=== PATIENT | female | born 1975 | race Caucasian/White ===

== ENCOUNTER 2022-10-07 08:15 | Outpatient (CLI) | payer OTHER, SELFPAY | END 2022-10-07 08:16 | disposition home or self-care (01) | PROVIDERS: PCP Family Medicine; Referring Provider Family Medicine; Visit Provider Family Medicine | DX: Z13.6 Encounter for screening for cardiovascular disorders (principal); Z13.9 Encounter for screening, unspecified | CPT/HCPCS: 80053; 80061 ==

== ENCOUNTER 2022-10-16 13:35 | Outpatient (CLI) | payer OTHER, SELFPAY ==
[2022-10-16 17:18] LABS: Chlamydia DNA Amplified* NOT DETECTED (No Detected); GC DNA Amplified* NOT DETECTED (No Detected)
== END 2022-10-16 13:36 | disposition home or self-care (01) ==
LOC: NFLDREF 13:36
PROVIDERS: PCP Family Medicine; Visit Provider Family Medicine
DX: N93.9 Abnormal uterine and vaginal bleeding, unspecified (principal)
CPT/HCPCS: 87491; 87591

== ENCOUNTER 2022-10-24 09:10 | Outpatient (CLI) | payer OTHER, SELFPAY ==
--- NOTE | 2022-10-24 09:15 | CRLHL7_ITS ---
For Patients: As a result of the Century Cures Act, medical imaging exams and procedure reports are released immediately into your electronic medical record. You may view this report before your referring provider. If you have questions, please contact your health care provider. INDICATION: 47 year-old female. Menstrual spotting not otherwise specified. TECHNIQUE: Transabdominal and transvaginal pelvic ultrasound. COMPARISON: None. FINDINGS: The uterus is mildly enlarged measuring 11.4 x 5.4 x 6.9 cm. The endometrial stripe measures 4 mm transvaginally. Small cervical nabothian cysts. There are 3 discrete myometrial masses. There is a submucosal lesion along the superior left margin of the uterine body measuring 1.9 x 2.0 x 1.8 cm clearly impinging upon and displacing the endometrial stripe. There is a 2nd intramural fibroid measuring 1.4 x 1.4 x 1.4 just adjacent to the 1st fibroid. There is a 3rd small submucosal fibroid measuring 0.9 x 0.9 x 1.0 cm along the posterior mid right uterine body impinging upon the endometrial stripe. The ovaries are normal in size without mass or torsion. The right ovary measures 3.0 x 1.7 x 2.1 cm. The left ovary measures 3.8 x 1.7 x 1.8 cm. No free pelvic fluid. IMPRESSION: Three myometrial masses 2 which impinge upon the endometrial stripe. No endometrial stripe thickening. Dictated by Leonel Chanel MD @ 10/24/2022 9:51:34 AM (Electronically Signed)
== END 2022-10-24 09:11 | disposition home or self-care (01) ==
LOC: US 09:11
PROVIDERS: PCP Family Medicine; Visit Provider Family Medicine
DX: N92.3 Ovulation bleeding (principal); R19.05 Periumbilic swelling, mass or lump
CPT/HCPCS: 76830; 76856

== ENCOUNTER 2023-02-26 07:35 | Day surgery (SDC) | payer OTHER, SELFPAY ==
[2023-02-26] VITALS (7 sets, daily range): BP systolic 81–103; BP diastolic 48–76; PULSE 55–89; RESP 14–16; TEMP 36.1–36.6; O2SAT 95–100; BMI 25.2
[2023-02-26] MEDS: LACTATED RINGERS 1000 ML 1,000 ML 100 ML IV (07:40)
[2023-02-26 08:06] LABS: Ur HCG Qualitative* Negative (Negative)
[2023-02-26 08:13] LABS: Hemoglobin* 13.6 gm/dL (12.0-16.0)
[2023-02-26] MEDS: SODIUM CHLORIDE 0.9 % (FLUSH) 10 ML SYRINGE IVF (08:16)
--- NOTE | 2023-02-26 09:38 | W.ANESCHARGE ---
Anesthesia Charges Start Date/Time Anesthesia Start Date: 02/26/23 Anesthesia Start Time: 09:10 Stop Date/Time Anesthesia Stop Date: 02/26/23 Anesthesia Stop Time: 10:19
--- NOTE | 2023-02-26 09:43 | W.ANESCHARGE ---
Anesthesia Charges Start Date/Time Anesthesia Start Date: 02/26/23 Anesthesia Start Time: 09:10 Stop Date/Time Anesthesia Stop Date: 02/26/23 Anesthesia Stop Time: 10:19
[2023-02-26] MEDS: SILVER NITRATE APPLICATOR 1 EACH STICK..EA. TOPICAL (10:10)
--- NOTE | 2023-02-26 10:27 | P.GYNPRC_ITS ---
Procedure Note Time Seen by Provider: 10:27 Date of procedure: 02/26/23 Procedure Description: Preoperative diagnosis: Jen is a 47 year-old with abnormal uterine bleeding due to suspected intramural leiomyoma that is distorting her uterine cavity. She is currently menstruating. Postoperative diagnosis: Same Procedure: Hysteroscopy, Dilation and Curettage using the Truclear incisor Anesthesia: Conscious sedation, paracervical block. Surgeon: Aditi Goode MD Refinery Operator Gas Plant: None Estimated blood loss: <5 mL UOP: 155 cc Specimen: Endometrial curettings to pathology. Findings: Exam under anesthesia: Cervix: anterior midline nabothian cyst. Uterus: anteverted position, 6 week sized, mobile, with no masses or nodularity palpable. Uterus sounded to 10 cm. No adnexal masses or nodularity palpable. On hysteroscopy: One large anterior left intramural fibroid noted. Endometrium indicative of current menstruation. Normal bilateral tubal ostea. Procedure: Jen was taken to the operating operating room more conscious sedation was found to be adequate. Bladder emptied with straight cath. The patient was placed on in the dorsal lithotomy position and an exam under anesthesia was performed with findings stated above. She was then prepped and draped in a normal sterile manner. A bivalve speculum was placed in the vagina. The cervix appears multiparous. Otherwise no abnormalities. The paracervical block was placed using 1% lidocaine with epi, 5 mL was injected at the 4 and 8 o'clock positions on the cervix. The anterior lip of the cervix was grasped with tenaculum. The cervix dilated to Hegar 6 with minimal resistance as her cervix is slightly dilated with menstruation. The uterus sounded to 10 cm. The Truclear hysteroscope was advanced into the uterus. A diagnostic hysteroscopy was performed with normal saline as the insufflation medium. Findings are stated above. The Truclear incisor (soft tissue)was then advanced through the camera. The curettage was performed with the incisor and I was able to obtain endometrial sampling but soft tissue incisor was minimally effective during myomectomy. The incisor was then removed and the dense tissue shaver was used for the rest of the procedure. The endometrial cavity, overall, appeared normal. Saline deficit at the end of the procedure 620 mL. Silver nitrate sticks were used for hemostasis at tenaculum site after removal. The hysteroscope and speculum were removed from the vaginal canal. The patient tolerated the procedure well. Sponge, lap and instrument counts were correct x2 at the end of the procedure. The patient was taken to the recovery area in stable condition.
== END 2023-02-26 11:45 | disposition home or self-care (01) ==
PROVIDERS: PCP Family Medicine; Visit Provider Obstetrics & Gynecology
PROC: 0UDB8ZZ Extraction of Endometrium, Via Natural or Artificial Opening Endoscopic (ICD-10-PCS; CPT 58558; principal; 2023-02-26 08:45)
DX: N93.8 Other specified abnormal uterine and vaginal bleeding (principal); D25.1 Intramural leiomyoma of uterus
CPT/HCPCS: 58558; 00952; 36415; 81025; 85018; 88305; A9270; J1885; J2250; J2405; J2704; J7120

== ENCOUNTER 2023-11-12 08:10 | Outpatient (CLI) | payer OTHER, SELFPAY ==
--- OUTSIDE RECORDS SUMMARY | 2023-11-28 03:07 | XMS_ITS | Continuity of Care Document ---
Author Organization [facility] Address [address] [place] [address] Phone Care Team Providers Care Photographic Reproduction Technician Name Role Phone Abiodun Yang Unavailable Unavailable Allergies, Adverse Reactions, Alerts Substance Reaction Status Criticality No Known Allergies Active No Inform ation Medications Medication Instructions Dosage Effective Dates (start - stop) Status Comments KETOROLAC TROMETHAMINE (unknown strength) Not Available - Active CYCLOBENZAPRINE HCL (unknown strength) Not Available - Active GABAPENTIN (unknown strength) Not Available - Active METHYLPREDNISOLONE (unknown strength) Not Available - Active ZOLOFT (unknown strength) Not Available - Active Procedures Procedure Date Office/Outpatient Visit,Candelario Conway 2020 Advance Directives Directive Yes / No Effective Date File Name No Information Encounters Encounter Description Practice Location Reason(s) For Visit Diagnoses Date Provider Providers Copied on Encounter [facility], [address], [place], [place], [id number], [place] tel:[phone] [facility] No Information 1 Iggy Rascon. [facility], [address] [place] [address], [address], [place], [place], [id number] , [place]. tel:[phone] Office/Outpat ient Visit,[facility], [facility], [address], [place], [place], [id number], [place] tel:[phone] [facility] - [facility] Low back pain 1 Panvica Abiodun. [facility], [address], [address], [place], [place], [address] , [place]. tel:[phone] Referring Provider: Richi Welsh, [facility] [address] [place], [address]. tel:[phone] Family History Family Member Type Diagnosis Age At Onset No Information Payers Payer name Insurance type Covered constitution party ID Mary rose(s[facility] [id number] Social History Type Description Quantity Date Captured Comments Sex Female Smoking Status No Information Chief Complaint And Reason For Visit No Information Reason For Referral Reason For Referral No Information History Of Present Illness Encounter Date Complaint History Of Prese nt Illness No Information Functional Status Date Functional Assessmen t No Information Instructions Date Instruction Additional Infor mation No Information Assessments Type Assessment Date No Information Patient Care Teams Name Effective Dates (start - stop) Status Members No Information
== END 2023-11-12 08:11 | disposition home or self-care (01) ==
LOC: NFLDREF 11-28 03:04
PROVIDERS: PCP Family Medicine; Referring Provider Family Medicine; Visit Provider Family Medicine
DX: Z13.228 Encounter for screening for other metabolic disorders (principal); Z13.220 Encounter for screening for lipoid disorders
CPT/HCPCS: 80053; 80061

== ENCOUNTER 2023-12-21 14:46 | Outpatient (CLI) | payer OTHER, SELFPAY ==
--- OUTSIDE RECORDS SUMMARY | 2023-12-21 14:48 | XMS_ITS | Continuity of Care Document ---
Author Organization [facility] Address [address] [place] [address] Phone Care Team Providers Care Corn Sheller Operator Name Role Phone Abiodun Yang Unavailable Unavailable Allergies, Adverse Reactions, Alerts Substance Reaction Status Criticality No Known Allergies Active No Inform ation Medications Medication Instructions Dosage Effective Dates (start - stop) Status Comments ZOLOFT (unknown strength) Not Available - Active METHYLPREDNISOLONE (unknown strength) Not Available - Active GABAPENTIN (unknown strength) Not Available - Active CYCLOBENZAPRINE HCL (unknown strength) Not Available - Active KETOROLAC TROMETHAMINE (unknown strength) Not Available - Active Procedures Procedure Date Office/Outpatient Visit,Candelario Conway 2020 Advance Directives Directive Yes / No Effective Date File Name No Information Encounters Encounter Description Practice Location Reason(s) For Visit Diagnoses Date Provider Providers Copied on Encounter [facility], [address], [place], [place], [id number], [place] tel:[phone] [facility] No Information 1 Iggy Abiodun. [facility] [place], [address] [place] [address], [address], [place], [place], [id number] , [place]. tel:[phone] [facility]pat ient [facility], [address], [place], [place], [address], [place] tel:[phone] [facility] - [facility] Low back pain 1 Panvica Abiodun. [facility] [place], [address], [address], [place], [place], [address] , [place]. tel:[phone] Referring Provider: Richi Welsh, [facility] [address] [place], [address]. tel:[phone] Family History Family Member Type Diagnosis Age At Onset No Information Payers Payer name Insurance type Covered constitution party ID [facility] rose[facility] [id number] Social History Type Description Quantity Date Captured [...]
--- NOTE | 2023-12-21 15:00 | CRLHL7_ITS ---
For Patients: As a result of the Century Cures Act, medical imaging exams and procedure reports are released immediately into your electronic medical record. You may view this report before your referring provider. If you have questions, please contact your health care provider. BILATERAL SCREENING MAMMOGRAM WITH COMPUTER-AIDED DETECTION AND TOMOSYNTHESIS TECHNIQUE: CC and MLO views were obtained. These mammographic images have been obtained using full-field digital technique. These mammographic images were interpreted with the benefit of computer-aided detection. Breast Tomosynthesis was used in this interpretation. COMPARISON FILM: 11/11/22, 08/21/21, 02/17/20. FINDINGS: The breasts are heterogeneously dense, which may obscure small masses. IMPRESSION: There is no radiographic evidence for malignancy. ASSESSMENT: BI-RADS Category 2: Benign RECOMMENDATION: Routine screening mammogram in 1 year. A lay language report of this examination will be provided to the patient. Wali Chapin M.D. Diagnostic Radiologist [email or web address] SP/Dictated by: Wali Chapin MD @ 12/28/2023 12:57:00 PM (Electronically Signed)
== END 2023-12-21 14:47 | disposition home or self-care (01) ==
LOC: MAMMO 14:46
PROVIDERS: PCP Family Medicine; Visit Provider Family Medicine
DX: Z12.31 Encounter for screening mammogram for malignant neoplasm of breast (principal); R92.2 Inconclusive mammogram
CPT/HCPCS: 77063; 77067

== ENCOUNTER 2024-01-26 13:45 | Outpatient (RCR) | payer OTHER, SELFPAY | END 2024-05-25 23:59 | disposition home or self-care (01) | PROVIDERS: PCP Family Medicine; Visit Provider Family Medicine | DX: M54.50 Low back pain, unspecified (principal); Z51.89 Encounter for other specified aftercare | CPT/HCPCS: 97110; 97140; 97162 ==

== ENCOUNTER 2024-03-28 11:29 | Outpatient (CLI) | payer BC, SELFPAY ==
--- OUTSIDE RECORDS SUMMARY | 2024-03-28 11:33 | XMS_ITS | Clinical Summary ---
Author Organization [facility] Address [place], [place] [address] Care Team Providers Care Molded Goods Spot Picker Name Role Phone Richi Cartwright MD Primary Care Provider [phone] Medications Medication Sig Dispensed Refills Start Date End Date Status sertraline (ZOLOFT) 50 mg tablet Take 50 mg by mouth once daily. 11/02/2023 Active cetirizine (ZyrTEC) 10 mg tablet Take 10 mg by mouth once daily. Active Encounters Date Type Department Care Team Description 01/25/2024 Telephone [facility] [address] [place] [address] Will Foster DPM DME Supply (Custom orthotics) 01/12/2024 3:15 PM CDT Office Visit [facility] [address] [place] [address] Will Foster DPM Consult (Bilateral foot pain) 01/12/2024 Travel from Last 3 Months Social History Tobacco Use Types Packs/Day Years Used Date Smoking Tobacco: Never Assessed Sex and Gender Information Value Date Recorded Sex Assigned at Not on file Gender Identity Not on file Sexual Orientation Not on file Last Filed Vital Signs Vital Sign Reading Time Taken Comments Blood Pressure 101/66 01/12/2024 3:28 PM CDT Pulse 69 01/12/2024 3:28 PM CDT Temperature - - Respiratory Rate - - Oxygen Saturation 97% 01/12/2024 3:28 PM CDT Inhaled Oxygen Concentration - - Weight - - Height - - Body Mass Index - - Plan of Treatment Health Maintenance Due Date Last Done Comments Tdap 1986 Depression screening for age 12+ 1987 HIV for age 15-65 1990 BMI (ht and wt on same day) for age 18+ 1993 Hepatitis C screening for age 18-79 1993 Tetanus booster 1995 Colonoscopy through age 75 2020 Lipids for age 45-75 2020 Mammogram for age 45-75 2020 COVID-19 vaccine series ( season) 2024 04/01/2023, 04/10/2022, 03/11/2021, Additional history exists Influenza for age 9-49 02/28/2024 Pap test for age 21-65 10/16/2025 3, 10/16/2022, 05/03/2020, Additional history exists Pneumococcal series for age 6-64 Aged Out No longer eligible based on patient's age to complete this topic Procedures Procedure Name Priority Date/Time Associated Diagnosis Comments CERAMIC TILE INSTALLER THIN PREP PAP SCREEN IMAGED Routine 10/16/2022 1:25 PM CDT Encounter for screening for malignant neoplasm of cervix from Last 3 Months or Most Recently Relevant to Health Maintenance Results * CERAMIC TILE INSTALLER THIN PREP PAP SCREEN IMAGED (10/16/2022 1:25 PM CDT) Case Report Gynecologic Cytology Report ? Case: [id number] ? Authorizing Provider: ??Yajaira Haynes MD ??Collected: ? 10/16/2022 1325 ? Ordering Location: ? [facility] ?Received: ?10/20/2022 0955 ? First Screen: ?Lisell, Dinesh ? Specimen: ?CERAMIC TILE INSTALLER ThinPrep Vial Screening, Cervical/Vaginal ? 11/14/2022 11:21 AM CDT [facility] INTERPRETATION/ RESULT NEGATIVE FOR INTRAEPITHELIAL LESION OR MALIGNANCY (NIL) (none) 11/14/2022 11:21 AM [facility] IMEN ADEQUACY Satisfactory for evaluation No endocervical component seen 11/14/2022 11:21 AM T [facility] HPV REQUEST HPV and PAP 11/14/2022 11:21 AM [facility] Date of LMP 09/19/2022 11/14/2022 11:21 AM [facility] Last Pap Date 11/14/2022 11:21 AM T [facility] Comment:unk Abnormal Pap or [place] Bx in last 5 years No 11/14/2022 11:21 AM CDT [facility] [place] Bx Done Today No 11/14/2022 11:21 AM [facility] Additional Information 11/14/2022 11:21 AM T [facility] Comment: Interpreted at [facility] - [address] [place] [address] [place] [address] Automated Review Successful 11/14/2022 11:21 AM T [facility] Comment:Specimen processed s uccessfully by automated caterpillar mechanic device, ThinPrep Imaging System, [employer] ANCILLARY TESTING CERAMIC TILE INSTALLER HPV Ordered, Please see separate report 11/14/2022 11:21 AM T [facility] Note The pap test is a screening technique, not a diagnostic procedure. It is used primarily to screen for squamous cancers and precursor lesions. Published studies have shown that it is subject to both false negative and false positive results. The pap test should not be used as the sole means to diagnose or exclude pre-malignant and malignant lesions. 11/14/2022 11:21 AM CDT [facility] Other (Cervical/Vagina l) 10/16/2022 1:25 PM CDT 10/20/2022 9:55 AM CDT Yajaira Haynes MD PATHOLOGY/CYTOLO GY [facility] [address] [place] [address], from Last 3 Months or Most Recently Relevant to Health Maintenance Care Teams Molded Goods Spot Picker Relationship Specialty Start Date End Date Richi Cartwright MD PCP - General Family Practice 02/19/15
--- OUTSIDE RECORDS SUMMARY | 2024-03-28 11:33 | XMS_ITS | Continuity of Care Document ---
Author Organization [facility] Address [address] [place] [address] Phone Care Team Providers Care Draw Tender Name Role Phone Abiodun Yang Unavailable Unavailable [...] on Encounter [facility], [address], [place], [place], [id number], [place] tel:[phone] [facility] No Information 1 Iggy Abiodun. [facility] [place], [address] [place] [address], [address], [place], [place], [address] , [place]. tel:[phone] Office/Outpat ient Visit,[facility], [facility], [address], [place], [place], [address], [place] tel:[phone] [facility] - [facility] Low back pain 1 Panvica Abiodun. [facility] [place], [address], [address], [place], [place], [id number] , [place]. tel:[phone] Referring Provider: Richi Welsh, [facility] [address] [place], [address]. tel:[phone] Family History Family Member Type Diagnosis Age At Onset No Information Payers Payer name Insurance type Covered democrat ID Mary rose(s) [facility] [id number] Social History Type Description Quantity Date Captured [...]
--- NOTE | 2024-03-28 12:39 | W.ANESCHARGE ---
Anesthesia Charges Start Date/Time Anesthesia Start Date: 03/28/24 Anesthesia Start Time: 12:25 Stop Date/Time Anesthesia Stop Date: 03/28/24 Anesthesia Stop Time: 13:00
--- NOTE | 2024-03-28 13:05 | W.ANESCHARGE ---
Anesthesia Charges Start Date/Time Anesthesia Start Date: 03/28/24 Anesthesia Start Time: 12:25 Stop Date/Time Anesthesia Stop Date: 03/28/24 Anesthesia Stop Time: 13:00
== END 2024-03-28 11:30 | disposition home or self-care (01) ==
LOC: OP CLINIC 11:31
PROVIDERS: PCP Family Medicine; Visit Provider Surgery
DX: Z12.11 Encounter for screening for malignant neoplasm of colon (principal); Z86.010 Personal history of colon polyps
CPT/HCPCS: 00811; 00812; 45378; J2405; J2704

== ENCOUNTER 2025-01-20 09:54 | Outpatient (CLI) | payer BC, SELFPAY ==
--- NOTE | 2025-01-20 10:15 | CRLHL7_ITS ---
For Patients: As a result of the Century Cures Act, medical imaging exams and procedure reports are released immediately into your electronic medical record. You may view this report before your referring provider. If you have questions, please contact your health care provider. INDICATION: BILATERAL SCREENING MAMMOGRAM, ASYMPTOMATIC 49 Y/O FEMALE COMPARISON: 12/21/2023, 11/11/2022, 08/21/2021 TECHNIQUE: Digital mammogram in CC and MLO projections including computer-aided detection (CAD) and tomosynthesis. BREAST COMPOSITION: There are scattered areas of fibroglandular density. FINDINGS: No suspicious findings. ASSESSMENT: BI-RADS 1 Negative RECOMMENDATION: Annual screening mammogram. A lay language report of this examination will be provided to the patient. Dictated by: Anna Crowe MD @ 01/23/2025 21:24:11 (Electronically Signed)
== END 2025-01-20 09:55 | disposition home or self-care (01) ==
LOC: MAMMO 09:55
PROVIDERS: PCP Family Medicine; Visit Provider Family Medicine
DX: Z12.31 Encounter for screening mammogram for malignant neoplasm of breast (principal)
CPT/HCPCS: 77063; 77067

== ENCOUNTER 2025-03-24 10:02 | Outpatient (CLI) | payer BC, SELFPAY ==
--- NOTE | 2025-03-24 10:15 | CRLHL7_ITS ---
For Patients: As a result of the Century Cures Act, medical imaging exams and procedure reports are released immediately into your electronic medical record. You may view this report before your referring provider. If you have questions, please contact your health care provider. INDICATION: Low back pain. COMPARISON: 01/20/2025. Technique Sagittal T1, T2, and STIR sequences. Axial T1 and T2 weighted sequences. FINDINGS: Normal vertebral body alignment. No fractures. No vertebral body loss of height. No spondylolisthesis. No ligamentous injury. No suspicious osseous lesions. Normal conus terminates at L1. T12-L1 L1-2 L2-3: No spinal canal neural foraminal narrowing. L3-4: No spinal canal neural foraminal narrowing. L4-5: Disc degeneration. Posterior disc bulge. Superimposed left paracentral disc protrusion measures 6 mm in short axis. Severe narrowing of the spinal canal. Impingement of the traversing left L5 nerve root. No neural foraminal narrowing. L5-S1: Sacralization of L5 on the left. No spinal canal or neural foraminal narrowing. Normal visualized SI joints. Normal paraspinal soft tissues. IMPRESSION: 1. Normal alignment. No fractures 2. At L4-5, disc degeneration and posterior disc bulge. Left paracentral disc protrusion. Severe narrowing of the spinal canal. Impingement of the traversing left L5 nerve root. 3. No spinal canal or neural foraminal narrowing at the remaining levels Dictated by Maurilio Carbone MD @ 03/25/2025 10:11:41 AM (Electronically Signed)
== END 2025-03-24 10:03 | disposition home or self-care (01) ==
LOC: MRI 10:02
PROVIDERS: PCP Family Medicine; Visit Provider Family Medicine
DX: M54.50 Low back pain, unspecified (principal); M51.369 Other intervertebral disc degeneration, lumbar region without mention of lumbar back pain or lower extremity pain
CPT/HCPCS: 72148